=== PATIENT | male | born 1975 | race Caucasian/White ===

== ENCOUNTER 2018-04-30 17:54 | Emergency (ER) | payer BC ==
[2018-04-30] MEDS ORDERED: Lidocaine 1% 20 ML MDV INJECT ONE (17:58)
[2018-04-30] MEDS ORDERED: Acetaminophen/HYDROcodone 325-5 MG Tab PO ONE (18:05)
[2018-04-30] MEDS ORDERED: ceFAZolin 1 GM Vial IM ONE (18:30)
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
[2018-04-30] MEDS ORDERED: Water For Injection, Sterile 20 ML SDV INJECT ONE (18:59)
[2018-04-30] MEDS ORDERED: Diphtheria,Pertussis(Acell),Tetanus Vaccine 0.5 ML Syringe IM ONE (19:19)
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
== END 2018-04-30 19:54 | disposition home or self-care (01) ==
LOC: MW.ED 17:54
DX: S62.635B Displaced fracture of distal phalanx of left ring finger, initial encounter for open fracture (principal); S62.633B Displaced fracture of distal phalanx of left middle finger, initial encounter for open fracture; F17.210 Nicotine dependence, cigarettes, uncomplicated; W26.8XXA Contact with other sharp object(s), not elsewhere classified, initial encounter; Z23 Encounter for immunization
CPT/HCPCS: 73130; 90471; 90715; 96372; 99283; A9270; J0690